=== PATIENT | female | born 1940 ===

== ENCOUNTER 2018-09-25 14:02 | Emergency (ER) | payer OTHER ==
[~2018-09-25] VITALS: Ht 152.4 cm; Wt 50.8 kg
[2018-09-25] MEDS ORDERED: PROTONIX40 MG (14:32)
[2018-09-25] MEDS ORDERED: PEPCID40 MG (14:33)
[2018-09-25] MEDS ORDERED: [UNRECOGNIZED DRUG - OTHER] (14:33)
[2018-09-25] MEDS ORDERED: CARAFATE1 GM (14:33)
[2018-09-25] MEDS ORDERED: ROBINUL FORTE2 MG (14:33)
[2018-09-25] MEDS ORDERED: LOSARTAN POTASS50 MG (14:34)
[2018-09-25] MEDS ORDERED: ASA81 MG (14:34)
== END 2018-09-25 21:30 | disposition home or self-care (01) ==
LOC: ER 14:02
DX: N20.0 Calculus of kidney (principal)